=== PATIENT | male | born 1960 | race Two or more races ===

== ENCOUNTER 2019-07-30 09:32 | Emergency (ER) | payer BC ==
[2019-07-30] MEDS ORDERED: NORMAL SALINE 1000 ML 1,000 ML IV ONE (10:05)
--- NOTE | 2019-07-30 10:08 | ER Document Report ---
ED General - General Chief Complaint: High Blood Sugar Stated Complaint: WEAKNESS Time Seen by Provider: 07/30/19 10:05 Primary Care Provider: VINITA CHEN MD [Primary Care Provider] - Follow up in 1 week Mode of Arrival: Medic Information source: Patient, Emergency Med Personnel Notes: This 59-year-old diabetic from [place] presents to the emergency care with r eports that he does not feel well. Reports he left [place] last night due to this job, was not feeling really well. This morning he woke up feeling worse. Did not take his insulin. Started experiencing nausea & vomiting. Vomited "a lot" three times. Took himself to the urgent care where he became lightheaded and diaphoretic and they sent him to the emergency department via EMS. Reports his blood glucose level was 173 last night. Reports this morning at the urgent care was 365. EMS reports BGL at 375. Patient reports he has not had any of his insulin this morning. 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 Denies fever diarrhea. Reports last bowel movement was yesterday. Patient reports some abdominal discomfort. Reports his abdomen is more rounder than normal. Denies chest pain, SOB. No other complaints such as cough pain with void. - HPI Onset: Yesterday Onset/Duration: Sudden Quality of pain: No pain Pain Level: Denies Associated symptoms: Nausea, Vomiting. denies: Chest pain, Shortness of breath Exacerbated by: Denies Relieved by: Denies Similar symptoms previously: No Recently seen / treated by doctor: No - Related Data Allergies/Adverse Reactions: No Known Allergies Allergy (Unverified 07/30/19 09:49) Past Medical History - General Information source: Patient - Social History Smoking Status: Unknown if Ever Smoked Cigarette use (# per day): No Frequency of alcohol use: None Drug Abuse: None Occupation: delivers bread products Lives with: Family Family History: None Patient has suicidal ideation: No Patient has homicidal ideation: No Endocrine Medical History: Reports: Hx Diabetes Mellitus Type 2 Past Surgical History: Reports: Hx Abdominal Surgery - hernia repair Review of Systems - Review of Systems Notes: Review HPI for review of systems., All other systems negative Physical Exam - Vital signs Vitals: Temp Pulse Resp BP Pulse Ox 97.7 F 105 H 16 131/69 H 96 07/30/19 09:42 07/30/19 09:42 07/30/19 09:42 07/30/19 09:42 07/30/19 09:42 - General General appearance: Alert In distress: None - HEENT Head: Normocephalic Eyes: Normal Conjunctiva: Normal Extraocular movements intact: Yes Ears: Normal External canal: Normal Tympanic membrane: Normal Mouth/Lips: Normal Mucous membranes: Normal, Moist Pharynx: Normal Neck: Normal, Supple. No: Lymphadenopathy - Respiratory Respiratory status: No respiratory distress Chest status: Nontender Breath sounds: Normal Chest palpation: Normal - Cardiovascular Rhythm: Regular Heart sounds: Normal auscultation Murmur: No - Abdominal Inspection: Normal Distension: Distended Bowel sounds: Hypoactive Tenderness: Tender Organomegaly: No organomegaly - Back Back: Normal - Extremities General upper extremity: Normal ROM General lower extremity: Normal ROM - Neurological Neuro grossly intact: Yes Cognition: Normal Orientation: AAOx4 [place] Coma Scale Eye Opening: Spontaneous [place] Coma Scale Verbal: Oriented [place] Coma Scale Motor: Obeys Commands [place] Coma Scale Total: 15 Speech: Normal - Psychological Associated symptoms: Normal affect, Normal mood - Skin Skin Temperature: Warm Skin Moisture: Dry Skin Color: Normal Course - Re-evaluation Re-evalutation: 07/30/19 10:23 This 59-year-old male presents with nausea and vomiting with a history of diabetes. Has not taken his insulin today. Reports symptoms started yesterday with him not feeling well. Had episode of nausea and vomiting today. Also complains of low abdominal pain in his stomach feeling pinon than normal. Reports he did have a bowel movement yesterday but it was small. Does have a history of constipation. 07/30/19 11:27 Patient reports he is feeling a little bit better after fluids, feels like he has some heartburn. Denies nausea, no further vomiting. KUB X-Ray 07/30/19 10:20 IMPRESSION: NO RADIOGRAPHIC EVIDENCE FOR ACUTE ABDOMINAL DISEASE. Chest X-Ray 07/30/19 10:21 IMPRESSION: NO ACUTE RADIOGRAPHIC FINDING IN THE CHEST. 07/30/19 10:20 07/30/19 10:20 MCV 70 fl (80-97) L 07/30/19 10:20 MCH 24.3 pg (27.0-33.4) L 07/30/19 10:20 MCHC 34.7 g/dL (32.0-36.0) 07/30/19 10:20 RDW 19.6 % (11.5-14.0) H 07/30/19 10:20 Seg Neutrophils % 90.7 % (42-78) H 07/30/19 10:20 VBG pH 7.44 (7.30-7.42) H 07/30/19 10:48 VBG pCO2 39.5 mmHg (35-63) 07/30/19 10:48 VBG HCO3 25.9 mmol/L (20-32) 07/30/19 10:48 VBG Base Excess 1.7 mmol/L 07/30/19 10:48 Chloride 100 mmol/L (98-107) 07/30/19 10:20 Carbon Dioxide 26 mmol/L (22-30) 07/30/19 10:20 Anion Gap 11 (5-19) 07/30/19 10:20 Est GFR ( Amer) > 60 (>60) 07/30/19 10:20 Glucose 322 mg/dL (75-110) H 07/30/19 10:20 Calcium 9.9 mg/dL (8.4-10.2) 07/30/19 10:20 Total Bilirubin 1.7 mg/dL (0.2-1.3) H 07/30/19 10:20 AST 15 U/L (17-59) L 07/30/19 10:20 Alkaline Phosphatase 88 U/L (38-126) 07/30/19 10:20 Total Protein 6.5 g/dL (6.3-8.2) 07/30/19 10:20 Albumin 4.0 g/dL (3.5-5.0) 07/30/19 10:20 07/30/19 10:20 Creatine Kinase < 20 L 07/30/19 13:35 Patient is feeling much better eating crackers drinking p.o. fluids. Blood sugar is 293. He has been provided with his Humalog 15 units. He reports is what he usually would take for that blood sugar. No further vomiting. WBC 16.5 no fever Patient is walking around ready to be discharged. accucheck Reports he feels 1 00% better. Instructed on all labs vital signs stable patient instructed on on Zofran and encouraged to take medicine as indicated. He was also instructed to follow-up with primary care provider when he returns to [place]. He verbalized understanding to all instructions. 07/30/19 18:24 Patient contacted via phone. Reports he feels much better. Just arrived home. He was instructed to make sure he follows up with his primary care provider and he verbalized understanding. Dictation of this chart was performed using voice recognition software; therefore, there may be some unintended grammatical errors. - Vital Signs Vital signs: Temp Pulse Resp BP Pulse Ox 97.5 F 87 16 133/69 H 97 07/30/19 14:32 07/30/19 14:32 07/30/19 14:32 07/30/19 14:32 07/30/19 14:32 - Laboratory Result Diagrams: 07/30/19 10:20 07/30/19 10:20 Laboratory results interpreted by me: 07/30/19 07/30/19 07/30/19 09:40 10:20 10:20 WBC 16.4 H Hgb 12.5 L Hct 36.2 L MCV 70 L MCH 24.3 L RDW 19.6 H Lymph % (Auto) 6.2 L Craig % (Auto) 2.6 L Absolute Neuts (auto) 14.9 H Seg Neutrophils % 90.7 H VBG pH Sodium 136.8 L Glucose 322 H POC Glucose 338 H Total Bilirubin 1.7 H AST 15 L Creatine Kinase < 20 L Urine Glucose (UA) Urine Ketones Urine Urobilinogen 07/30/19 07/30/19 07/30/19 10:48 11:30 12:07 WBC Hgb Hct MCV MCH RDW Lymph % (Auto) Craig % (Auto) Absolute Neuts (auto) Seg Neutrophils % VBG pH 7.44 H Sodium Glucose POC Glucose 310 H Total Bilirubin AST Creatine Kinase Urine Glucose (UA) >=500 H Urine Ketones 20 H Urine Urobilinogen 2.0 H 07/30/19 13:13 WBC Hgb Hct MCV MCH RDW Lymph % (Auto) Craig % (Auto) Absolute Neuts (auto) Seg Neutrophils % VBG pH Sodium Glucose POC Glucose 293 H Total Bilirubin AST Creatine Kinase Urine Glucose (UA) Urine Ketones Urine Urobilinogen - Diagnostic Test Radiology reviewed: Image reviewed, Reports reviewed - EKG Interpretation by Me EKG shows normal: Sinus rhythm Rate: Tachycardia Additional EKG results interpreted by me: 07/30/19 10:[address] elevation no T wave inversion Discharge - Discharge Clinical Impression: Nausea & vomiting, High blood sugar Condition: Stable Disposition: HOME, SELF-CARE Instructions: Antinausea Medication ([facility]), Intravenous (IV) Fluids ([facility]), Vomiting ([facility]) Additional Instructions: *You have been evaluated for nausea/vomiting , high blood sugar *Take medication as prescribed for nausea *Monitor your glucose *Ensure adequate fluid intake *Follow up with your primary care provider within one week *Return to ED for worsening condition, changes, needs Referrals: VINITA CHEN MD [Primary Care Provider] - Follow up in 1 week
[2019-07-30 10:37] LABS: ABSOLUTE MONOCYTES (AUTO) 0.4 10^3/uL (0.1-1.4); ABSOLUTE NEUT (AUTO) 14.9 10^3/uL (1.7-8.2); BASOPHILS % (AUTO) 0.3 % (0-2); EOSINOPHILS % (AUTO) 0.2 % (0-6); HEMATOCRIT 36.2 % (37.9-51.0); HEMOGLOBIN 12.5 g/dL (13.5-17.0); LYMPHOCYTES % (AUTO) 6.2 % (13-45); MEAN CORPUSCULAR HEMOGLOBIN 24.3 pg (27.0-33.4); MEAN CORPUSCULAR HGB CONC 34.7 g/dL (32.0-36.0); MEAN CORPUSCULAR VOLUME 70 fl (80-97); MONOCYTES % (AUTO) 2.6 % (3-13); PLATELET COUNT 210 10^3/uL (150-450); RED BLOOD COUNT 5.16 10^6/uL (4.35-5.55); RED CELL DISTRIBUTION WIDTH 19.6 % (11.5-14.0); SEGMENTED NEUTROPHILS % (AUTO) 90.7 % (42-78); TOTAL CELLS COUNTED % (AUTO) 100 %; WHITE BLOOD COUNT 16.4 10^3/uL (4.0-10.5)
[2019-07-30 10:56] LABS: VENOUS BLOOD BASE EXCESS 1.7 mmol/L; VENOUS BLOOD HCO3 25.9 mmol/L (20-32); VENOUS BLOOD PCO2 39.5 mmHg (35-63); VENOUS BLOOD PH 7.44 (7.30-7.42)
[2019-07-30 11:03] LABS: ALKALINE PHOSPHATASE 88 U/L (38-126); ANION GAP 11 (5-19); ASPARTATE AMINO TRANSFERASE 15 U/L (17-59); BILIRUBIN,DIRECT 0.3 mg/dL (0.0-0.4); BILIRUBIN,TOTAL 1.7 mg/dL (0.2-1.3); BLOOD UREA NITROGEN 20 mg/dL (7-20); CALCIUM 9.9 mg/dL (8.4-10.2); CARBON DIOXIDE 26 mmol/L (22-30); CHLORIDE 100 mmol/L (98-107); GLUCOSE 322 mg/dL (75-110); POTASSIUM 4.4 mmol/L (3.6-5.0); TOTAL PROTEIN 6.5 g/dL (6.3-8.2)
[2019-07-30 11:04] LABS: CREATINE KINASE < 20 U/L (55-170)
--- NOTE | 2019-07-30 11:15 | RADIOLOGY REPORT (SQ) ---
EXAM DESCRIPTION: KUB/ABDOMEN (SINGLE VIEW) COMPLETED DATE/TIME: 07/30/2019 10:42 am REASON FOR STUDY: abd pain COMPARISON: None. NUMBER OF VIEWS: One view. TECHNIQUE: Supine radiographic image of the abdomen acquired. LIMITATIONS: None. FINDINGS: BOWEL GAS PATTERN: Nonspecific nonobstructive bowel gas pattern with stool in the colon an d air in right lower quadrant nondistended small bowel loops. CALCIFICATIONS: No suspicious calcifications. SOFT TISSUES: No gross mass or suggestion of organomegaly. HARDWARE: None in the abdomen. BONES: No acute fracture. No worrisome bone lesions. OTHER: No other significant finding. IMPRESSION: NO RADIOGRAPHIC EVIDENCE FOR ACUTE ABDOMINAL DISEASE. TECHNICAL DOCUMENTATION: JOB ID: [id number] [employer]- All Rights Reserved Reading location - IP/workstation name: [email or web address]
--- NOTE | 2019-07-30 11:17 | RADIOLOGY REPORT (SQ) ---
EXAM DESCRIPTION: CHEST 2 VIEWS COMPLETED DATE/TIME: 07/30/2019 10:42 am REASON FOR STUDY: n/v, abd pain COMPARISON: None. EXAM PARAMETERS: NUMBER OF VIEWS: two views TECHNIQUE: Digital Frontal and Lateral radiographic views of the chest acquired. RADIATION DOSE: NA LIMITATIONS: none FINDINGS: LUNGS AND PLEURA: No opacities, masses or pneumothorax. No pleural effusion. MEDIASTINUM AND HILAR STRUCTURES: No masses or contour abnormalities. HEART AND VASCULAR STRUCTURES: Heart normal size. No evidence for failure. BONES: No acute findings. HARDWARE: None in the chest. OTHER: No other significant finding. IMPRESSION: NO ACUTE RADIOGRAPHIC FINDING IN THE CHEST. TECHNICAL DOCUMENTATION: JOB ID: [id number] [employer]- All Rights Reserved Reading location - IP/workstation name: [email or web address]
[2019-07-30 11:44] LABS: APPEARANCE,URINE CLEAR; BILIRUBIN,URINE NEGATIVE (NEGATIVE); COLOR,URINE YELLOW; GLUCOSE, URINE >=500 mg/dL (NEGATIVE); KETONES,URINE 20 mg/dL (NEGATIVE); LEUKOCYTE ESTERASE,URINE NEGATIVE (NEGATIVE); NITRITE,URINE NEGATIVE (NEGATIVE); PROTEIN,URINE NEGATIVE (NEGATIVE); URINE SPECIFIC GRAVITY 1.025
[2019-07-30] MEDS ORDERED: METOCLOPRAMIDE HCL ORAL SOLN 10 MG/10 ML UDCUP PO ONE (11:49)
[2019-07-30] MEDS ORDERED: LIDOCAINE 2% VISCOUS SOLN 20 ML UDCUP PO ONE (11:49)
[2019-07-30] MEDS ORDERED: MAG HYDROX/AL HYDROX/SIMETH SUSP 30 ML UDCUP PO ONE (11:49)
[2019-07-30] MEDS ORDERED: INSULIN REG, HUMAN 100 UNIT/ML 3 ML VIAL (PYX) SUBCUT ONE (12:36)
[2019-07-30 14:33] VITALS: BP 133/69
[2019-07-30] MEDS ORDERED: ONDANSETRON ODT 4 MG TAB (6 TAB/ER DISP) PO PRN (14:40)
[2019-07-30] MEDS ORDERED: ONDANSETRON ODT 4 MG TAB (6 TAB/ER DISP) ONE (14:49)
--- NOTE | 2019-07-30 23:27 | EKG REPORT ---
SEVERITY:- BORDERLINE ECG - SINUS TACHYCARDIA BORDERLINE INFERIOR Q WAVES BORDERLINE T ABNORMALITIES, INFERIOR LEADS : Confirmed by: Bart Stewart 30-Jul-2019 23:27:01
== END 2019-07-30 14:56 | disposition home or self-care (01) ==
LOC: ER 09:32
DX: R11.2 Nausea with vomiting, unspecified (principal); E11.9 Type 2 diabetes mellitus without complications; Z79.4 Long term (current) use of insulin
CPT/HCPCS: 93005; 99285; 96360; 36415; 82962; 82550; 85025; 80053; 81001; 84484; 82803; 71046; 74018; 93010; J3490; J1815; J7030